=== PATIENT | female | born 1980 | race Caucasian/White ===

== ENCOUNTER 2024-07-29 16:17 | Emergency (ER) | payer MEDICAID ==
[~2024-07-29] VITALS: Ht 170.2 cm; Wt 124.0 kg
[~2024-07-29 16:17] MED LIST: ASPI-1160 PO; ATEN100T PO; GABA-1180 PO; LIP40 PO; LISI10TA26 PO
[2024-07-29 16:26] VITALS: O2SAT 97
[2024-07-29] MEDS ORDERED: IBUP-2029 MT (18:21)
[2024-07-29] MEDS ORDERED: NALO4SPR BOTHNSTRLS (18:22)
[2024-07-29] MEDS ORDERED: OXYC-100 MT (18:22)
[2024-07-29] MEDS: MORPHINE SULFATE 4 MG/ML INJ (FOR IV/IM USE) IM ONE (18:24)
[2024-07-29 18:42] VITALS: BP 126/81; PULSE 56; RESP 14; TEMP 36.8; O2SAT 96
[2024-07-29] MEDS: LIDOCAINE HCL 1% 20ML VIAL INFIL ONE (19:05)
[2024-09-25] MEDS ORDERED: OXYC-100 MT (14:57)
== END 2024-07-29 20:03 | disposition home or self-care (01) ==
LOC: ER 16:17
DX: S52.591A Other fractures of lower end of right radius, initial encounter for closed fracture (principal); I10 Essential (primary) hypertension; E78.5 Hyperlipidemia, unspecified; Z79.899 Other long term (current) drug therapy; Z99.3 Dependence on wheelchair; Z86.73 Personal history of transient ischemic attack (TIA), and cerebral infarction without residual deficits; Z79.82 Long term (current) use of aspirin; W19.XXXA Unspecified fall, initial encounter; Y93.89 Activity, other specified; Y92.89 Other specified places as the place of occurrence of the external cause; Y99.8 Other external cause status
CPT/HCPCS: 73090; 73100; 73120; 29125; 96372; 99284; J2003; J2270; Z7610 ×2; A6449